=== PATIENT | male | born 1955 | race Caucasian/White ===

== ENCOUNTER 2022-08-29 12:16 | Emergency (ER) | payer MEDICARE, OTHER ==
[2022-08-29] MEDS ORDERED: morphine SULFATE 4 MG/ML VIAL ONE (12:32)
[2022-08-29] MEDS ORDERED: FAMOTIDINE 20 MG/50 ML IVPB 20 MG/50 ML MG IVPB ONE (12:45)
[2022-08-29 12:51] VITALS: TEMP 97.9; BMI 27.9
[2022-08-29] MEDS ORDERED: morphine CARPU-JECT 2 MG/1 ML DISP.SYRIN IVPUSH ONE ×2 (13:30→13:57)
[2022-08-29] MEDS ORDERED: morphine SULFATE 4 MG/ML VIAL IVPUSH ONE (13:30)
[2022-08-29 13:40] LABS: BASO % 0.8 % (0-2.0); EOS % 0.3 % (0-4.5); HEMATOCRIT 41.9 % (35.4-49); HEMOGLOBIN 13.9 GM/dL (11.7-16.9); LYMPH % 13.2 % (8-40); MCH 32.8 pg (25.7-33.7); MCHC 33.2 g/dl (32.0-35.9); MEAN CELL VOLUME 98.7 fl (80-96); MEAN PLT VOLUME 9.6 fl (7.5-11.1); MONO % 6.1 % (3.8-10.2); NEUT % 79.6 % (42.8-82.8); PLATELET COUNT 128 10^3/uL (134-434); RBC 4.25 M/mm3 (4.00-5.60); RDW 13.6 % (11.9-15.9); WHITE BLOOD COUNT 8.8 K/mm3 (4.0-10.0)
[2022-08-29 14:02] LABS: INR 0.97 (0.83-1.09); PROTHROMBIN TIME (PATIENT) 11.2 SEC (9.7-13.0)
[2022-08-29 14:25] LABS: CALCIUM 8.4 mg/dL (8.5-10.1)
[2022-08-29 14:26] LABS: ALBUMIN 3.8 g/dl (3.4-5.0); BLOOD UREA NITROGEN 14.8 mg/dL (7-18)
[2022-08-29 14:30] LABS: BILIRUBIN,TOTAL 0.5 mg/dL (0.2-1); TOT PROT 6.6 g/dl (6.4-8.2)
[2022-08-29 14:35] VITALS: BP 111/67; PULSE 81; RESP 20
[2022-08-29 14:35] LABS: CREATININE 0.9 mg/dL (0.55-1.3)
== END 2022-08-29 14:19 | disposition short-term general hospital (02) ==
LOC: JER 12:16
PROC: 3E033GC Introduction of Other Therapeutic Substance into Peripheral Vein, Percutaneous Approach (ICD-10-PCS; principal; 2022-08-29)
PROC: 3E033GC Introduction of Other Therapeutic Substance into Peripheral Vein, Percutaneous Approach (ICD-10-PCS; 2022-08-29)
DX: I71.02 Dissection of abdominal aorta (principal); Z20.822 Contact with and (suspected) exposure to COVID-19
CPT/HCPCS: 36415; 71045-TC-FY; 71275-TC; 74174-TC; 80053; 83690; 84484; 85025; 85610; 93005; 93010; 99285-25; C9803-CS; Q9967; U0003; U0005